=== PATIENT | female | born 2000 | race Caucasian/White ===

== ENCOUNTER 2021-10-15 07:28 | Day surgery (SDC) | payer OTHER ==
[~2021-10-15] VITALS: Ht 152.4 cm; Wt 56.5 kg
[2021-10-15] MEDS ORDERED: LEXAPRO20 MG PO (07:49)
[2021-10-15] MEDS ORDERED: MINIPRESS2 MG PO (07:50)
[2021-10-15] MEDS ORDERED: LAMICTAL 100MG100 MG PO (07:51)
[2021-10-15] MEDS ORDERED: ATARAX 25MG25 MG/TAB PO (07:51)
[2021-10-15 08:11] VITALS: BP 112/73; PULSE 84; TEMP 97.7
[2021-10-15 09:30] VITALS: BP 100/64; PULSE 75; TEMP 97.2
[2021-10-15 09:45] VITALS: BP 93/72; PULSE 97; TEMP 97.8
[2021-10-15 10:00] VITALS: BP 102/68; PULSE 87; TEMP 97.7
--- NOTE | 2021-10-15 10:09 | NUR ---
? Pt returns from endo procedure via cart and RN assist to [facility] ?. Pt ambulates from cart to recliner with RN assist. Monitors on and alarms set. Call light within reach. Report received from ?, RN. Pt alert and oriented. 0930 Pt requests A WARM MUFFIN AND A COKE, NO ICE. Pt denies any pain or nausea. 0945 Pt taking food and drink well. No complications noted. 1010 IV TAKEN OUT. NO SIGNS OF COMPLICATIONS. 1015 Discharge instructions given to pt. All questions answered to HER satisfaction. Handed to pt are a thank you card and discharge information. 1030 Pt transferred out of the hospital via wheelchair and ? assist, to private vehicle driven by ?.
== END 2021-10-15 10:30 | disposition home or self-care (01) ==
LOC: SDCO 07:28 → EDSEX 08:00 → SDCO 08:00
DX: K92.1 Melena (principal); K64.0 First degree hemorrhoids; K64.4 Residual hemorrhoidal skin tags; K62.89 Other specified diseases of anus and rectum
CPT/HCPCS: J2704; J7120